=== PATIENT | female | born 1945 | race Caucasian/White ===

== ENCOUNTER → 2017-05-23 | Day surgery (SDC) | payer MEDICARE ==
[~2017-05-23] VITALS: Ht 157.5 cm; Wt 68.5 kg
[~2017-05-23] MED LIST: 0.9% Sodium Chloride 1,000 ML IV SCH; ALBU8.5H2 INHALATION; ALPR0.254 PO; ATOR20TA PO; CALC1CAP22 PO; CYCL5TAB PO; LISI-567 PO; LORA10CA PO; MONT10TA23 PO; NIFE60TA62 PO; NPR500T PO; OXYC-474 PO; PRIM50TA PO; Sodium Chloride LOK Flush 10 mL Syringe IV PRN; VENL75CA95 PO; VENL75TA3 PO; fentaNYL-PF 50 mCg/mL 2 mL Inj IVPUSH PRN
[2017-05-23 10:01] VITALS: BP 164/95; PULSE 77; RESP 14; O2SAT 100
--- NOTE | 2017-05-23 11:08 | PCM.ENDCOL ---
Colonoscopy Date of Service: May 23, 2017 Physician Antoni Meadows MD Pre Procedure Diagnosis: Screening Post Procedure Dx & Findings: Hemorrhoids diverticuliti Procedure Colonoscopy PROCEDURE IN DETAIL: Prep adequate Withdrawal time 10 minutes After unremarkable rectal examination the Olympus video colonoscope was inserted patient's anal canal and was advanced to cecum. Landmarks were identified including the ileocecal valve and appendiceal orifice. Scope was withdrawn systematically. Visualized colonic mucosa showed healthy shiny mucosa with normal healthy-appearing vasculature. In the sigmoid colon and to some extent to the descending colon, diverticula noted small to medium size many. In the rectum retroflexion was done which showed hemorrhoids. Anal canal was inspected carefully on the way out and hemorrhoids noted. Impression No family history of colon cancer polyp No personal history of colon cancer polyp. Diverticuli Hemorrhoids Recommendation Repeat colonoscopy 10 years Diverticular diet Presedation Assessment Risks and Benefits Informed consent was obtained from the patient after all risks and benefits including but not limited to drug reaction, infection, pain, bleeding, perforation, as well as alternatives were discussed. Patient monitoring Continuous pulse oximetry, cardiac monitoring, blood pressure monitoring, IV access, and oxygen at 2L per nasal cannula. Periprocedural Fentanyl: Fentanyl 125mcg Incrementally Midazolam: Midazolam 8mg Incrementally Complications There were no periprocedural complications identified. Post Procedure Plan Post Procedure Recommendations 1. Restrict activities today. 2. Resume normal activities in the morning. 3. Resume medications. 4. Patient informed of normal post procedure side effects as bloating, drowsiness, blood streaking in the stool. 5. average risk CRCS. If colon polyps come back as: -Hyperplastic- can repeat colonoscopy in 10 years -Tubular adenoma- repeat colonoscopy in 5 years -Tubulovillous/villous adenoma- repeat colonoscopy in 3 years -If any dysplasia- return to clinic as soon as possible 6. Please don't hesitate to call me with any questions. Antoni Meadows MD May 23, 2017 11:08
[2017-05-23 11:15] VITALS: BP 137/83; PULSE 75; RESP 12; O2SAT 97
[2017-05-23 11:36] VITALS: BP 131/74; PULSE 73; RESP 14; O2SAT 98
[2017-05-23 11:42] VITALS: BP 127/76; PULSE 75; RESP 14; O2SAT 99
== END | disposition home or self-care (01) ==
LOC: END 00:34
PROVIDERS: ATTEND Internal Medicine
DX: Z12.11 Encounter for screening for malignant neoplasm of colon (principal); K57.30 Diverticulosis of large intestine without perforation or abscess without bleeding; K64.8 Other hemorrhoids; I10 Essential (primary) hypertension; E78.5 Hyperlipidemia, unspecified; J45.909 Unspecified asthma, uncomplicated; F32.9 Major depressive disorder, single episode, unspecified; F41.9 Anxiety disorder, unspecified; G25.0 Essential tremor; M81.0 Age-related osteoporosis without current pathological fracture; Z87.891 Personal history of nicotine dependence
CPT/HCPCS: 99153; G0121; G0500; J2250; J3010; J7030